=== PATIENT | female | born 1965 | race Caucasian/White ===

== ENCOUNTER → 2016-12-30 | Outpatient (CLI) | payer BC, OTHER | LOC: BMCIMAGING 18:56 | PROVIDERS: ATTEND Family Medicine | DX: S91.112A Laceration without foreign body of left great toe without damage to nail, initial encounter (principal); W23.1XXA Caught, crushed, jammed, or pinched between stationary objects, initial encounter ==

== ENCOUNTER → 2017-06-29 | Outpatient (CLI) | payer BC | LOC: BMCIMAGING 12:52 | PROVIDERS: ATTEND Family Medicine | DX: Z12.31 Encounter for screening mammogram for malignant neoplasm of breast (principal) | CPT/HCPCS: G0202 ==